=== PATIENT | female | born 1960 | race Caucasian/White ===

== ENCOUNTER 2016-06-02 19:53 | Emergency (ER) | payer OTHER ==
[~2016-06-02] VITALS: Ht 167.6 cm; Wt 117.9 kg
[2016-06-02 20:02] VITALS: BP 117/93
[2016-06-02] MEDS ORDERED: ONDANSETRON HCL 4 MG/2 ML VIAL IM ONE (22:15)
[2016-06-02] MEDS ORDERED: HYDROmorphone HCL 2 MG/ML VL IM ONE (22:15)
[2016-06-02] MEDS ORDERED: ONDANSETRON HCL 4 MG/2 ML VIAL IV ONE (22:45)
[2016-06-02] MEDS ORDERED: HYDROmorphone HCL 2 MG/ML VL IV ONE (22:45)
== END 2016-06-02 23:11 | disposition home or self-care (01) ==
LOC: EDBD 19:53 → ER 19:57
DX: M79.604 Pain in right leg (principal); Z88.8 Allergy status to other drugs, medicaments and biological substances; W18.39XA Other fall on same level, initial encounter; Y93.89 Activity, other specified; Y99.8 Other external cause status; Y92.89 Other specified places as the place of occurrence of the external cause
CPT/HCPCS: 93971; 96374; 96375; 99284; J1170; J2405